=== PATIENT | male | born 1935 | race Caucasian/White ===

== ENCOUNTER → 2017-10-08 | Outpatient (CLI) | payer MEDICARE ==
[~2017-10-08] VITALS: Ht 180.3 cm; Wt 115.2 kg
[~2017-10-08] MED LIST: ASPIRIN 81M81 MG/TA2 PO; COSOPT 2%-0.5%10 ML OU; HCTZ 25MG TAB25 MG PO; LIPITOR 40MG TA40 MG PO; MULTIPLE VITAMI1 CAP PO; PRESERVISIONLUT PO; PRINIVIL20 MG PO; THE MEDICINE S200 M2 PO; TOPROL XL 25MG25 MG PO
[2017-10-08 12:36] VITALS: BP 134/73; PULSE 65
[2017-10-08 14:15] VITALS: BP 160/90; PULSE 64
== END ==
LOC: COL.RAD 11:56
DX: M48.07 Spinal stenosis, lumbosacral region (principal); M47.26 Other spondylosis with radiculopathy, lumbar region